=== PATIENT | male | born 1945 | race Caucasian/White ===

== ENCOUNTER 2021-08-14 15:10 | Emergency (ER) | payer OTHER ==
[~2021-08-14] VITALS: Ht 182.9 cm; Wt 72.6 kg
[2021-08-14 15:52] LABS: ABSOLUTE NEUTROPHILS 4.7 thou/uL (1.4-8.2); BASOPHILS 0.7 % (0.0-2.0); HEMATOCRIT 46.9 % (42.0-52.0); HEMOGLOBIN 15.7 gm/dL (14.0-18.0); LYMPHOCYTES 33.7 % (24.0-44.0); MCH 32.4 pg (26.0-34.0); MCHC 33.6 g/dL (28.0-37.0); MCV 96.6 fL (80.0-100.0); MONOCYTES 10.6 % (1.0-8.0); PLATELET COUNT 303 thou/uL (150-400); RBC 4.86 mil/uL (4.50-6.00); RDW 13.5 % (10.5-14.5)
[2021-08-14 16:26] LABS: CALCIUM 9.1 mg/dL (8.5-10.1); CREATININE 0.9 mg/dL (0.7-1.3); POTASSIUM 3.8 mmol/L (3.5-5.1)
[2021-08-14 16:45] LABS: ALBUMIN 3.6 g/dL (3.4-5.0); TOTAL BILIRUBIN 0.4 mg/dL (0.2-1.0); TOTAL PROTEIN 7.4 g/dL (6.4-8.2)
[2021-08-14] MEDS ORDERED: AUGMENTIN 875-1 EACH PO (17:12)
[2021-08-14] MEDS ORDERED: LATANOPROST 0.2.5 ML INTRAOCULR (17:22)
[2021-08-14] MEDS ORDERED: SYMBICORT160 MCG/4. INH (17:22)
[2021-08-14] MEDS ORDERED: PROAIR HFA8.5 GM INH (17:23)
[2021-08-14 17:34] VITALS: BP 165/98
--- NOTE | 2021-08-15 10:00 | EKG ---
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
== END 2021-08-14 17:41 | disposition home or self-care (01) ==
LOC: ER 15:10
PROVIDERS: Physician Assistant
DX: J32.9 Chronic sinusitis, unspecified (principal); Z20.822 Contact with and (suspected) exposure to COVID-19; R06.02 Shortness of breath; J45.909 Unspecified asthma, uncomplicated; J44.9 Chronic obstructive pulmonary disease, unspecified; F17.200 Nicotine dependence, unspecified, uncomplicated; Z79.51 Long term (current) use of inhaled steroids; Z79.899 Other long term (current) drug therapy